=== PATIENT | female | born 1985 | race Caucasian/White ===

== ENCOUNTER 2020-11-11 19:27 | Emergency (ER) | payer OTHER, SELFPAY ==
[2020-11-11 19:51] VITALS: BP 124/87; PULSE 90; RESP 18; TEMP 37.6; O2SAT 98; BMI 29.9
[2020-11-11 19:54] VITALS: O2SAT 99
--- NOTE | 2020-11-11 19:56 | XRR_ITS ---
PROCEDURE INFORMATION: Exam: XR Chest Exam date and time: 11/11/2020 7:56 PM Age: 35 years old Clinical indication: Cough and shortness of breath; Additional info: Cp TECHNIQUE: Imaging protocol: XR of the chest. Views: 1 view. COMPARISON: No relevant prior studies available. FINDINGS: Lungs: Unremarkable. No consolidation. Pleural spaces: Unremarkable. No pleural effusion. No pneumothorax. Heart/Mediastinum: Unremarkable. No cardiomegaly. Bones/joints: Unremarkable. XR/XR chest 1V portable [id number] IMPRESSION: No acute findings.
[2020-11-11] MEDS: acetaminophen 500 mg Tablet 1000 MG PO (20:19)
[2020-11-11 20:22] LABS: SARS Covid-2 Antigen Positive (Negative)
--- NOTE | 2020-11-11 20:30 | ED_ITS ---
HPI - COVID General: Chief Complaint: COVID symptoms Stated Complaint: sob, chest tightness,cough, covid exposure,lott Time Seen by Provider: 11/11/20 19:57 Source: patient Mode of arrival: ambulatory Limitations: no limitations Triage information: Has fever, cough or shortness of breath . Exposure to COVID + person last 14 days History of Present Illness: HPI Narrative: 35-year-old female who is been in contact with Covid positive people and states that today she started having fever body aches slight cough. Denies any shortness of breath. Denies any worsening improving factors. COVID 19 common symptoms: positive fever(s), chills and non-productive cough; negative headache(s), throat pain, nausea, vomiting or diarrhea COVID 19 other sytmptoms: negative chest pain COVID Results: SARS-CoV-2 Antigen (Rapid) Positive (Negative) H 11/11/20 20:00 11/11/20 Review of Systems Const: Reports: fever(s) and chills Eyes: Denies: blurry vision or eye discomfort ENMT: Denies: throat pain or dental pain Card: Denies: chest pain Resp: Reports: non-productive cough GI: Denies: abdominal pain, nausea, vomiting or diarrhea : Denies: dysuria Musc: Denies: neck pain or back pain Skin/Breast: Denies: rash Neuro: Denies: headache(s) Psych: Denies: depression Yg/Lymph: Denies: easy bruising All/Imm: Denies: urticaria [facility] ED Female Reproductive History: Date of last menstrual period: 11/07/20 Physical Exam Const: COMMON NORMALS: no acute distress, patient oriented x3 and healthy appearing HENMT: COMMON NORMALS: normocephalic and atraumatic HEAD & SCALP: normocephalic and atraumatic Eye: COMMON NORMALS: Equal, round and reactive pupils present and EOMs intact bilaterally PUPIL: Yes Equal, round and reactive pupils present Neck/C-Spine: COMMON NORMALS: full ROM and supple Chest: COMMONS NORMALS: normal inspection of the chest and normal palpation of entire chest wall Resp: COMMON NORMALS: normal respiratory effort, No retractions, No use of accessory muscles and clear to auscultation bilaterally AUSCULTATION: clear to auscultation bilaterally Cardio: COMMON NORMALS: regular rate, regular rhythm and No murmurs present (Cardio) RATE: regular rate RHYTHM: regular rhythm GI: COMMON NORMALS: Normal to inspection, nondistended, normoactive bowel sounds present, Soft to palpation, non-tender and no masses PALPATION: Yes Soft to palpation Extremity: COMMON NORMALS: normal to inspection and full ROM Neuro: COMMON NORMALS: patient oriented x3, moves all extremities and no focal motor deficits Psych: COMMON NORMALS: mental status grossly normal, Normal thought process present and cooperative THOUGHT PROCESS: Normal thought process present Skin: COMMON NORMALS: no rashes or lesions noted and no wounds GENERAL SKIN EXAM: no rashes or lesions noted Course Vital Signs: Vital signs: Vital Signs Temperature 99.7 F H 11/11/20 19:51 Pulse Rate 90 11/11/20 19:51 Respiratory Rate 18 11/11/20 19:51 Blood Pressure 124/87 11/11/20 19:51 Pulse Oximetry 99 11/11/20 19:54 MDM - COVID MDM Narrative: Medical decision making narrative: Patient presents here with Covid. Her rapid Covid is positive. She is not dyspneic and is well-appearing and is stable for discharge. She is to follow-up PCP and return if worsening. 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
== END 2020-11-11 20:49 | disposition home or self-care (01) ==
PROVIDERS: Emergency Provider Emergency Medicine
DX: U07.1 COVID-19 (principal)
CPT/HCPCS: 71045; 87426; 99283

== ENCOUNTER 2022-12-05 12:49 | Emergency (ER) | payer OTHER, SELFPAY ==
[2022-12-05 13:50] VITALS: BP 127/82; PULSE 73; RESP 16; TEMP 36.8; O2SAT 100; BMI 28.7
--- NOTE | 2022-12-05 14:13 | XR_ITS ---
WS: [id number] Exam: XR ribs RT mn 3V w CXR1V [id number] Date/Time of Exam: 12/05/2022 2:13 PM Reason For Exam: pain/injury No sign of acute RIGHT rib fracture. The RIGHT lung is fully expanded and clear. No pleural or pulmon wendy reactive changes. Normal cardiomediastinal silhouette. The LEFT lung is clear and fully expanded. IMPRESSION: 1. No acute RIGHT rib fracture or pneumothorax.
--- NOTE | 2022-12-05 14:13 | W.ED.BACK ---
HPI - Back Pain/Injury General: Chief Complaint: Back Pain/Injury Stated Complaint: urgent care sent, needs xray on back Time Seen by Provider: 12/05/22 13:54 Source: patient Mode of arrival: ambulatory Limitations: no limitations History of Present Illness: Patient is a 37-year-old female who presents to ED today with a complaint of right-sided back pain that she sustained approximately 3 days ago after lifting a heavy load of linens. She states she works for the [employer] and incident occurred at work. She states this is not Worker's Comp. She states since then she has had pain to the right side of her back that seems to be worse with movement and deep inhalation. She does not feel short of breath at rest. No abdominal pain. MD elicited complaint: back pain Onset (ago): day(s) Timing: constant Severity: moderate Similar Symptoms Previously: No Location: right upper back Radiation: none Exacerbating factors: movement Relieving factors: immobilization Context: while lifting Associated symptoms: Reports no associated symptoms; Deny abdominal pain, chills, dysuria, fatigue, fever(s), hematuria, syncope or urinary urgency Work related injury: Yes Review of Systems Const: Denies: fever(s), chills, body aches, fatigue or malaise Card: Denies: chest pain, palpitations, irregular heart rhythm, edema, swelling of feet/ankles, lightheadedness, syncope, pre-syncope or orthopnea Resp: Reports: pain on inspiration; Denies: dyspnea, wheezing, hemoptysis or chest congestion GI: Denies: abdominal pain : Denies: flank pain, difficulty voiding, dysuria, urinary urgency or hematuria Musc: Reports: back pain; Denies: neck pain, extremity pain, extremity swelling, joint pain or joint swelling Skin/Breast: Denies: rash Neuro: Denies: headache(s), numbness in extremities, weakness in extremities or sensory changes Physical Exam Const: COMMON NORMALS: no acute distress, patient oriented x3, no limitations, alert and well nourished GENERAL APPEARANCE: cooperative ORIENTATION/CONSCIOUSNESS: Yes awake, Yes oriented to person, Yes oriented to place and Yes oriented to time HENMT: COMMON NORMALS: normocephalic and atraumatic HEAD & SCALP: normal to inspection, normocephalic and atraumatic Eye: GENERAL EYE: appearance normal, both eyes and all related structures and normal light reflex DIRECT OPHTHALMOSCOPY: Yes normal light reflex Neck/C-Spine: COMMON NORMALS: full ROM, no lymphadenopathy, no meningeal signs and no JVD CERVICAL SPINE: Yes cervical ROM normal, No Paracervical muscle tenderness and No Trapezius muscle tenderness Chest: COMMONS NORMALS: normal inspection of the chest and normal palpation of entire chest wall Resp: COMMON NORMALS: normal respiratory effort and clear to auscultation bilaterally AUSCULTATION: clear to auscultation bilaterally Cardio: COMMON NORMALS: no JVD, regular rate and regular rhythm RATE: regular rate RHYTHM: regular rhythm GI: COMMON NORMALS: Normal to inspection, nondistended, normoactive bowel sounds present, Soft to palpation, non-tender and no masses PALPATION: Yes Soft to palpation : COMMON NORMALS: Yes no CVA tenderness BLADDER/KIDNEY EXAM: Yes no CVA tenderness Back/Pelvis: COMMON NORMALS: no CVA tenderness, thoracic and lumbar spine normal to inspection, no thoracic nor lumbar tenderness and thoraco-lumbar ROM normal THORACIC SPINE/UPPER BACK: Yes pain with ROM, No thoracic spinal tenderness, Yes paraspinal muscle tenderness and No paraspinal muscle spasm LUMBAR SPINE/LOWER BACK: Yes lumbar ROM normal, No lumbar spinal tenderness, No paraspinal muscle tenderness and No paraspinal muscle spasm PELVIS: No sciatic notch tenderness SACROILIAC JOINTS: Yes SI joints normal SACRUM: no tenderness COCCYX: no tenderness BACK IMAGE (FEMALE): 1. TTP-easily reproducible Extremity: COMMON NORMALS: normal to inspection, full ROM and capillary refill normal GENERAL: Yes normal exam except as noted RIGHT UPPER EXTREMITY: Yes shoulder joint (ROM of R shoulder aggravates R back pain) Neuro: JUWAN COMA SCALE: document GCS findings Juwan coma scale eye opening: Spontaneous Juwan coma scale verbal response: Orientated Juwan coma scale motor response: Obey commands [place] coma scale total score: 15 COMMON NORMALS: patient oriented x3, moves all extremities, no focal motor deficits and no sensory deficits noted SENSORIUM/ORIENTATION: Yes alert, Yes oriented to person, Yes oriented to place and Yes oriented to time MENINGEAL SIGNS: Yes no meningeal signs Skin: COMMON NORMALS: no rashes or lesions noted GENERAL SKIN EXAM: no rashes or lesions noted Course Vital Signs: Vital signs: Vital Signs Temperature 98.2 F 12/05/22 13:50 Pulse Rate 73 12/05/22 13:50 Respiratory Rate 16 12/05/22 13:50 Blood Pressure 127/82 12/05/22 13:50 Pulse Oximetry 100 12/05/22 13:50 Oxygen Delivery Me thod Room Air 12/05/22 13:50 MDM - Back Pain/Injury Medical Decision Making XR negative. Vital signs are stable. Pain is easily reproducible. At this time we will treat patient with anti-inflammatories, muscle relaxers, steroids. She can follow-up with primary care in 1 to 2 weeks if symptoms persist. Discharge Plan Discharge Patient Disposition: Home Clinical Impression: Musculoskeletal back pain Condition: Stable Prescriptions: New cyclobenzaprine 10 mg tablet 10 mg PO TID Qty: 14 0RF ibuprofen 800 mg tablet 800 mg PO Q8H PRN (Reason: pain) Qty: 20 0RF Medrol (Kumar) 4 mg tablets,dose pack See Rx Instructions .ROUTE .COMPLEX Qty: 21 0RF Rx Instructions: orally per package directions Discontinued ibuprofen 200 mg Tablet 800 mg PO Q6H PRN (Reason: Pain) Discharge Orders: Discharge ED (Routine); Ordered 12/05/22 Ordered By: Madie Frey Patient Instructions: Muscle Strain (DC), Thoracic Back Strain (ED) Coding Level of Care Code 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
[2022-12-05] MEDS: dexamethasone 10 mg/mL INJ 8 MG IM (14:53)
[2022-12-05] MEDS: ketorolac 60 mg/2 mL INJ IM (14:53)
--- NOTE | 2022-12-06 11:59 | DCPLANNER ---
marketing services manager had message to speak with patient about getting established with a primary care physician. marketing services manager called phone number [phone], unable to speak with patient or leave a voicemail at this time.
== END 2022-12-05 15:11 | disposition home or self-care (01) ==
PROVIDERS: Emergency Provider Physician Assistant
DX: M54.89 Other dorsalgia (principal); X50.0XXA Overexertion from strenuous movement or load, initial encounter; Y92.239 Unspecified place in hospital as the place of occurrence of the external cause; Y99.0 Civilian activity done for income or pay
CPT/HCPCS: 71101; 96372; 99284; J1100; J1885

== ENCOUNTER → 2023-09-21 10:44 | Outpatient (BNVA) | payer SELFPAY | PROVIDERS: Visit Provider Family Medicine | DX: E66.9 Obesity, unspecified (principal); K21.9 Gastro-esophageal reflux disease without esophagitis; F41.9 Anxiety disorder, unspecified; R60.9 Edema, unspecified; M79.671 Pain in right foot; G89.29 Other chronic pain | CPT/HCPCS: 80053; 80061; 84439; 84443; 85025 ==

== ENCOUNTER → 2024-04-16 18:30 | Outpatient (BNVA) | payer SELFPAY | PROVIDERS: Visit Provider Family Medicine | DX: M79.672 Pain in left foot (principal) | CPT/HCPCS: 73630 ==

== ENCOUNTER 2024-09-20 15:48 | Outpatient (CLI) | payer BC, MEDICAID, SELFPAY ==
--- NOTE | 2024-09-20 15:56 | US_ITS ---
WS: [id number] ULTRASOUND SOFT TISSUES mid forehead. HISTORY: FOREHEAD MASS COMPARISON: None available. TECHNIQUE: 2-D and color Doppler imaging is submitted. Palpable nodule along the mid forehead corresponds to an area of shadowing and ill-defined margins measuring 0.7 x 0.6 x 0.6 cm. No increased vascularity. This may be a small bony protrusion or calcified nodule. US/US soft tissue head neck [id number] IMPRESSION: Tiny bony protrusion or soft tissue calcified nodule in the mid forehead corres ponding to the palpable abnormality. Benign appearing. If further imaging is ne cessary consider CT evaluation.
== END 2024-09-20 15:49 | disposition home or self-care (01) ==
LOC: RAD 15:49
PROVIDERS: PCP Family Medicine; Visit Provider Family Medicine
DX: R22.0 Localized swelling, mass and lump, head (principal)
CPT/HCPCS: 76536

== ENCOUNTER → 2024-11-04 13:39 | Outpatient (BNVA) | payer BC, MEDICAID, SELFPAY | PROVIDERS: PCP Family Medicine; Visit Provider Obstetrics & Gynecology | DX: Z01.419 Encounter for gynecological examination (general) (routine) without abnormal findings (principal) | CPT/HCPCS: 87624 ==

== ENCOUNTER 2024-11-06 13:27 | Outpatient (CLI) | payer BC, MEDICAID, SELFPAY ==
--- NOTE | 2024-11-06 13:40 | MM_ITS ---
WS: [id number] BILATERAL 3D TOMOSYNTHESIS DIGITAL SCREENING MAMMOGRAPHY WITH CAD CLINICAL INFORMATION: Z12.39 - Encounter for other screening for malignant neop... HISTORY: Screening mammogram. No current complaints. COMPARISON: None. TECHNIQUE: Bilateral CC and MLO views. FINDINGS: The breasts are composed of heterogeneous fibroglandular density tissue, which can limit the detection of small underlying mass lesions. No suspicious mass, asymmetry, calcifications, or architectural distortion. No evidence of malignancy. MM/MM [facility] tomosynthesis [id number] IMPRESSION: DENSITY: The breasts are heterogeneously dense, which may obscure small masses. BI-RADS: 1 - Negative FOLLOW UP: 1 Year Follow-up Recommend return to annual screening mammography.
== END 2024-11-06 13:28 | disposition home or self-care (01) ==
LOC: RAD 13:28
PROVIDERS: PCP Family Medicine; Visit Provider Obstetrics & Gynecology
DX: Z12.31 Encounter for screening mammogram for malignant neoplasm of breast (principal); R92.323 Mammographic fibroglandular density, bilateral breasts; R92.333 Mammographic heterogeneous density, bilateral breasts
CPT/HCPCS: 77063; 77067

== ENCOUNTER → 2024-12-05 11:43 | Outpatient (BNVA) | payer BC, MEDICAID, SELFPAY | PROVIDERS: PCP Family Medicine; Visit Provider Family Medicine | DX: R06.02 Shortness of breath (principal); R05.3 Chronic cough | CPT/HCPCS: 71046 ==